=== PATIENT | female | born 1960 | race American Indian/Alaskan Native ===

== ENCOUNTER 2017-06-29 22:25 | Emergency (ER) | payer BC, OTHER ==
[~2017-06-29] VITALS: Ht 157.5 cm; Wt 51.7 kg
[~2017-06-29 22:25] MED LIST: CALC-931 PO; FAMO20TA98 PO; MULT1CAP34 PO; PRED5TAB PO; TACR1CAP PO
[2017-06-29 22:30] VITALS: BP_SYST 151
[2017-06-29] MEDS ORDERED: DIPH-TET-PERTUS Vaccine 0.5 ML VIAL (ADACEL) I.M. ONE (23:00)
[2017-06-30 00:14] VITALS: BP_SYST 138
[2017-06-30] MEDS ORDERED: BACITRACIN 1 GM OINT TP ONE (00:15)
== END 2017-06-30 00:14 | disposition home or self-care (01) ==
LOC: SED 22:25
DX: S00.83XA Contusion of other part of head, initial encounter (principal); S80.12XA Contusion of left lower leg, initial encounter; S80.11XA Contusion of right lower leg, initial encounter; Z86.19 Personal history of other infectious and parasitic diseases; Z94.0 Kidney transplant status; Z85.3 Personal history of malignant neoplasm of breast; Z90.49 Acquired absence of other specified parts of digestive tract; Z88.5 Allergy status to narcotic agent; Z91.041 Radiographic dye allergy status; Z79.899 Other long term (current) drug therapy; X58.XXXA Exposure to other specified factors, initial encounter; Y93.89 Activity, other specified; Y92.89 Other specified places as the place of occurrence of the external cause; Y99.8 Other external cause status
CPT/HCPCS: 90715; 93971; 99284

== ENCOUNTER 2018-01-29 15:33 | Inpatient (IN) | payer BC, OTHER ==
[~2018-01-29] VITALS: Ht 152.4 cm; Wt 48.5 kg
[~2018-01-29 15:33] MED LIST changes: +FAMO-132 PO; -FAMO20TA98 PO
[2018-01-29 15:48] VITALS: BP_SYST 142
[2018-01-29 16:12] LABS: LYMPHOCYTES # (AUTO) 0.2 K/uL (1.0-5.5); MEAN CORPUSCULAR HEMOGLOBIN 31 pg (27-31); MEAN CORPUSCULAR VOLUME 93 fL (79.0-98.0); MONOCYTES # (AUTO) 0.2 K/uL (0.0-1.0)
[2018-01-29 16:16] LABS: BASOPHILS % (AUTO) 0.5 % (0.0-2.0); EOSINOPHILS % (AUTO) 0.3 % (0.0-4.0); HEMATOCRIT 38.9 % (36-48); MEAN CORPUSCULAR HGB CONC 34 % (32-36); MONOCYTES % (AUTO) 7.9 % (1.7-9.3); NEUTROPHILS # (AUTO) 2.6 K/uL (1.8-7.7); NEUTROPHILS % (AUTO) 84.3 % (40.0-70.0); PLATELET COUNT (AUTO) 86 K/uL (130-430); RED BLOOD CELL COUNT(AUTO) 4.18 MIL/uL (4.2-6.2); RED CELL DISTRIBUTION WIDTH 13.3 % (9.0-15.0)
[2018-01-29 16:22] LABS: CALCIUM 8.1 mg/dL (8.4-11.0); CREATININE 1.07 mg/dL (0.55-1.30); POTASSIUM 4.4 mmol/L (3.5-5.1)
[2018-01-29 16:25] LABS: PROTHROMBIN TIME 10.3 SECS (9.5-12.5)
[2018-01-29 16:28] LABS: ALBUMIN 3.5 g/dL (3.4-4.8); TOTAL BILIRUBIN 3.5 mg/dL (0.0-1.0)
[2018-01-29 16:44] LABS: BILIRUBIN,URINE NEGATIVE (NEGATIVE); BLOOD, URINE NEGATIVE (NEGATIVE); CLARITY/URINE CLEAR (CLEAR); COLOR,URINE YELLOW (YELLOW); GLUCOSE,URINE NEGATIVE (NEGATIVE); KETONES,URINE NEGATIVE (NEGATIVE); LEUKOCYTE ESTERASE ,URINE NEGATIVE (NEGATIVE); NITRITE, URINE NEGATIVE (NEGATIVE); PH,URINE 7.5 (5.0-8.0); PROTEIN URINE NEGATIVE (NEGATIVE)
[2018-01-29] MEDS ORDERED: NACL 0.9% 1,000 ML IV ONE (16:45)
[2018-01-29] MEDS ORDERED: MAGN100T3 PO (17:19)
[2018-01-29] MEDS ORDERED: ONDANSETRON HCL 4 MG/2 ML VIAL IVP PRN (17:45)
[2018-01-29] MEDS ORDERED: HYDROmorphone 1 MG INJ. 1 MG/ML AMPUL IVP PRN (17:45)
[2018-01-29 18:48] VITALS: BP_SYST 125
[2018-01-29] MEDS: D5NS 1,000 ML IV SCH (19:01)
[2018-01-29 19:10] VITALS: BP_SYST 144
[2018-01-30 00:31] VITALS: BP_SYST 134
[2018-01-30] MEDS: D5NS 1,000 ML IV SCH ×2 (03:50→13:58)
[2018-01-30 06:20] LABS: BASOPHILS % (AUTO) 0.5 % (0.0-2.0); EOSINOPHILS % (AUTO) 0.4 % (0.0-4.0); HEMATOCRIT 36.6 % (36-48); HEMOGLOBIN 12.5 g/dL (12.0-16.0); LYMPHOCYTES # (AUTO) 0.4 K/uL (1.0-5.5); LYMPHOCYTES % (AUTO) 15.3 % (20.5-51.5); MEAN CORPUSCULAR HEMOGLOBIN 31 pg (27-31); MEAN CORPUSCULAR HGB CONC 34 % (32-36); MEAN CORPUSCULAR VOLUME 92 fL (79.0-98.0); MONOCYTES # (AUTO) 0.3 K/uL (0.0-1.0); MONOCYTES % (AUTO) 12.5 % (1.7-9.3); NEUTROPHILS # (AUTO) 1.9 K/uL (1.8-7.7); NEUTROPHILS % (AUTO) 71.3 % (40.0-70.0); PLATELET COUNT (AUTO) 73 K/uL (130-430); RED BLOOD CELL COUNT(AUTO) 3.98 MIL/uL (4.2-6.2); RED CELL DISTRIBUTION WIDTH 13.2 % (9.0-15.0); WHITE BLOOD COUNT (AUTO) 2.6 K/uL (4.8-10.8)
[2018-01-30 06:29] LABS: CALCIUM 7.6 mg/dL (8.4-11.0); CREATININE 0.97 mg/dL (0.55-1.30); PHOSPHORUS 3.5 mg/dL (2.7-4.5); TOTAL BILIRUBIN 2.8 mg/dL (0.0-1.0)
[2018-01-30 08:06] VITALS: BP_SYST 150
[2018-01-30] MEDS ORDERED: PANTOPRAZOLE SODIUM 40 MG TAB PO SCH (09:00)
[2018-01-30] MEDS ORDERED: PREDNISONE 5 MG TABLET PO SCH (09:00)
[2018-01-30] MEDS ORDERED: TACROLIMUS ANHYDROUS 1 MG CAPSULE (PROGRAF) PO SCH ×2 (09:00)
[2018-01-30 12:39] VITALS: BP_SYST 132
[2018-01-30 15:17] VITALS: BP_SYST 142
[2018-01-30 16:57] VITALS: BP_SYST 125
[2018-02-02 07:20] LABS: TACROLIMUS (FK506) 12.9 ng/mL (2.0-20.0)
== END 2018-01-30 18:05 | disposition home or self-care (01) | DRG 439 ==
LOC: SED 15:33 → STU 17:39
PROVIDERS: ADMIT Internal Medicine; ATTEND Internal Medicine
DX: K85.90 Acute pancreatitis without necrosis or infection, unspecified (principal); Z94.0 Kidney transplant status; K57.92 Diverticulitis of intestine, part unspecified, without perforation or abscess without bleeding; I10 Essential (primary) hypertension; B19.20 Unspecified viral hepatitis C without hepatic coma; K21.9 Gastro-esophageal reflux disease without esophagitis; Z88.5 Allergy status to narcotic agent; Z91.041 Radiographic dye allergy status; Z88.8 Allergy status to other drugs, medicaments and biological substances; Z79.899 Other long term (current) drug therapy; Z85.3 Personal history of malignant neoplasm of breast; Z95.0 Presence of cardiac pacemaker; Z90.49 Acquired absence of other specified parts of digestive tract
CPT/HCPCS: 36415; 80053; 80197; 81003; 82150-TC; 83690-TC; 83735-TC; 84100-TC; 84484; 85025; 85610-TC; 85730-TC; 93005; 96360; 99285; J7042; J7507; J7512